=== PATIENT | male | born 1985 | race Caucasian/White ===

== ENCOUNTER 2024-10-15 12:37 | Emergency (ER) | payer OTHER ==
[~2024-10-15] VITALS: Ht 185.4 cm; Wt 109.0 kg
[2024-10-15 12:49] VITALS: TEMP 98.9
[2024-10-15] MEDS: HYDROCODONE/ACETAMINOPHEN 5-325 MG TABLET PO ONE (14:18)
[2024-10-15] MEDS ORDERED: IBUP-1493 PO (16:58)
[2024-10-15] MEDS ORDERED: HYDR-4062 PO (17:12)
[2024-10-15 17:36] VITALS: BP 128/77; PULSE 65; RESP 16; O2SAT 98
== END 2024-10-15 17:44 | disposition home or self-care (01) ==
LOC: EMS 12:42
DX: S93.401A Sprain of unspecified ligament of right ankle, initial encounter (principal); X50.1XXA Overexertion from prolonged static or awkward postures, initial encounter; Y93.02 Activity, running; Y92.89 Other specified places as the place of occurrence of the external cause; Y99.8 Other external cause status
CPT/HCPCS: 99283